=== PATIENT | female | born 1960 | race Two or more races ===

== ENCOUNTER → 2017-09-11 | Outpatient (CLI) | payer OTHER ==
[~2017-09-11] MED LIST: ALBU90OI INH; ARIP10 PO; Armour Thyroid120 MG; Budeprion Sr150 MG PO; CELE100; Crutch1 EACH MISC; DEXT10ER; DEXT15ER PO; DIVIGEL TD; ESTRTP VAG; GABA100 PO; Glucophage Xr750 MG PO; METF850; METO25ER; MINIVELLE1 EAC1 TD; Mobic15 MG PO; Naprosyn500 MG PO; OMEP20ER PO; PSYL5.85P PO; Percocet 5-3251 EACH PO; SENN187 PO; THYR60; TRAM50 PO; Valium5 MG PO; [UNRECOGNIZED DRUG - OTHER]
[2017-09-11 16:35] LABS: BASOPHILS ABSOLUTE AUTO 0.06 K/mm3 (0.00-0.23); BASOPHILS PERCENT AUTO 1 % (0-2); EOSINOPHILS ABSOLUTE AUTO 0.18 K/mm3 (0.00-0.68); EOSINOPHILS PERCENT AUTO 2 % (0-6); Hematocrit 44.5 % (33.0-51.0); Hemoglobin 14.8 g/dL (11.5-16.0); IMMATURE GRAN ABSOLUTE AUTO 0.03 K/mm3 (0.00-0.10); IMMATURE GRAN PERCENT AUTO 0 % (0-1); LYMPHOCYTES ABSOLUTE AUTO 2.53 K/mm3 (0.84-5.20); LYMPHOCYTES PERCENT AUTO 30 % (21-46); MONOCYTES ABSOLUTE AUTO 0.55 K/mm3 (0.16-1.47); MONOCYTES PERCENT AUTO 7 % (4-13); Mean Corpuscular HGB 30.1 pg (26.0-34.0); Mean Corpuscular HGB Conc 33.3 g/dL (31.5-36.5); Mean Corpuscular Volume 91 fL (80-100); Mean Platelet Volume 9.6 fL (9.1-12.4); NEUTROPHILS ABSOLUTE AUTO 5.05 K/mm3 (1.96-9.15); NEUTROPHILS PERCENT AUTO 60 % (41-73); Platelet Count 359 K/mm3 (150-400); RDW Coefficient Variation 11.7 % (11.7-14.2); RDW Standard Deviation 39.2 fL (35.1-46.3); Red Blood Cell Count 4.91 M/mm3 (3.80-5.20)
[2017-09-11 16:51] LABS: Alanine Aminotransfer (ALT/SGP 25 U/L (12-78); Albumin/Globulin Ratio 1.2 (0.8-1.8); Alk Phos 73 U/L (50-136); Anion Gap 6 mmol/L (6-16); Aspartate Aminotrans (AST/SGOT 16 U/L (12-37); Bilirubin, Total 0.6 mg/dL (0.1-1.0); Blood Urea Nitrogen 14 mg/dL (8-24); Bun/Creatinine Ratio 16.6 (12.0-20.0); CO2, Blood 29 mmol/L (21-32); Calcium, Blood 9.2 mg/dL (8.5-10.1); Chloride, Blood 105 mmol/L (98-108); Creatinine, Blood 0.84 mg/dL (0.40-1.00); Globulin, Blood 3.4 g/dL (2.2-4.0); Glomerular Filtration Rate >60 (60-); Glucose, Blood 98 mg/dL (70-99); Potassium, Blood 4.2 mmol/L (3.5-5.5); Sodium, Blood 140 mmol/L (136-145); Total Protein, Blood 7.4 g/dL (6.4-8.2)
== END | disposition home or self-care (01) ==
LOC: LAB 15:38 → LAB SHORT 15:38
PROVIDERS: Hospitalist
DX: R53.83 Other fatigue (principal)
CPT/HCPCS: 80053; 85025

== ENCOUNTER → 2018-05-27 | Outpatient (CLI) | payer OTHER | END | disposition home or self-care (01) | LOC: LAB 15:24 → LAB SHORT 15:24 | DX: R30.0 Dysuria (principal) | CPT/HCPCS: 87086 ==

== ENCOUNTER → 2018-06-18 | Outpatient (CLI) | payer OTHER ==
[2018-06-19 07:57] LABS: Candida species (DNA Probe) Negative (NEGATIVE); G. vaginalis (DNA Probe) Negative (NEGATIVE); T. vaginalis (DNA Probe) Negative (NEGATIVE)
== END | disposition home or self-care (01) ==
LOC: LAB 17:41 → LAB SHORT 17:41
PROVIDERS: Obstetrics & Gynecology
DX: R30.0 Dysuria (principal); N89.8 Other specified noninflammatory disorders of vagina
CPT/HCPCS: 87070; 87077; 87086; 87147; 87186; 87205; 87480; 87510; 87660

== ENCOUNTER → 2018-07-09 | Outpatient (CLI) | payer OTHER ==
[2018-07-10 09:25] LABS: Candida species (DNA Probe) Negative (NEGATIVE); G. vaginalis (DNA Probe) Positive (NEGATIVE); T. vaginalis (DNA Probe) Negative (NEGATIVE)
== END | disposition home or self-care (01) ==
LOC: LAB SHORT 17:49 → LAB 17:49
PROVIDERS: Obstetrics & Gynecology
DX: N89.8 Other specified noninflammatory disorders of vagina (principal); R30.0 Dysuria
CPT/HCPCS: 87070; 87086; 87205; 87480; 87510; 87660

== ENCOUNTER → 2018-08-04 | Outpatient (CLI) | payer OTHER ==
[2018-08-05 10:49] LABS: Candida species (DNA Probe) Negative (NEGATIVE); G. vaginalis (DNA Probe) Positive (NEGATIVE); T. vaginalis (DNA Probe) Negative (NEGATIVE)
== END | disposition home or self-care (01) ==
LOC: LAB SHORT 15:58 → LAB 15:58
PROVIDERS: Obstetrics & Gynecology
DX: N89.8 Other specified noninflammatory disorders of vagina (principal)
CPT/HCPCS: 87480; 87510; 87660

== ENCOUNTER → 2018-12-30 | Outpatient (CLI) | payer OTHER ==
[2018-12-31 11:55] LABS: Candida species (DNA Probe) Negative (NEGATIVE); G. vaginalis (DNA Probe) Positive (NEGATIVE); T. vaginalis (DNA Probe) Negative (NEGATIVE)
== END | disposition home or self-care (01) ==
LOC: LAB 16:32 → LAB SHORT 16:32
PROVIDERS: Obstetrics & Gynecology
DX: R30.0 Dysuria (principal); N89.8 Other specified noninflammatory disorders of vagina
CPT/HCPCS: 87086; 87480; 87510; 87660

== ENCOUNTER → 2019-02-25 | Outpatient (CLI) | payer OTHER | END | disposition home or self-care (01) | LOC: LAB SHORT 18:54 → LAB 18:54 | DX: N89.8 Other specified noninflammatory disorders of vagina (principal); R30.0 Dysuria | CPT/HCPCS: 87070; 87086; 87205 ==

== ENCOUNTER → 2019-05-28 | Outpatient (CLI) | payer OTHER ==
[2019-05-29 11:07] LABS: Candida species (DNA Probe) Negative (NEGATIVE); G. vaginalis (DNA Probe) Negative (NEGATIVE); T. vaginalis (DNA Probe) Negative (NEGATIVE)
== END | disposition home or self-care (01) ==
LOC: LAB 16:07 → LAB SHORT 16:07
PROVIDERS: Obstetrics & Gynecology
DX: N89.8 Other specified noninflammatory disorders of vagina (principal)
CPT/HCPCS: 87480; 87510; 87660

== ENCOUNTER → 2019-07-27 | Outpatient (CLI) | payer OTHER | END | disposition home or self-care (01) | LOC: LAB 14:59 → LAB SHORT 14:59 | DX: N89.8 Other specified noninflammatory disorders of vagina (principal); R30.0 Dysuria | CPT/HCPCS: 87070; 87086; 87205 ==

== ENCOUNTER → 2019-11-24 | Outpatient (CLI) | payer OTHER | LOC: LAB 17:59 → LAB SHORT 17:59 | DX: N89.8 Other specified noninflammatory disorders of vagina (principal); R30.0 Dysuria | CPT/HCPCS: 87070; 87086; 87205 ==

== ENCOUNTER → 2020-03-24 | Outpatient (CLI) | payer OTHER | LOC: LAB SHORT 15:49 → LAB 15:49 | DX: L08.9 Local infection of the skin and subcutaneous tissue, unspecified (principal); Z48.02 Encounter for removal of sutures | CPT/HCPCS: 87070; 87205 ==

== ENCOUNTER → 2020-03-31 | Outpatient (CLI) | payer OTHER | LOC: LAB 17:22 → LAB SHORT 17:22 | DX: E11.9 Type 2 diabetes mellitus without complications (principal) | CPT/HCPCS: 82043 ==

== ENCOUNTER → 2020-06-20 | Outpatient (CLI) | payer OTHER | LOC: LAB 15:54 → LAB SHORT 15:54 | DX: N89.8 Other specified noninflammatory disorders of vagina (principal); Z88.6 Allergy status to analgesic agent; Z88.5 Allergy status to narcotic agent | CPT/HCPCS: 87070; 87205 ==

== ENCOUNTER → 2021-04-19 | Outpatient (CLI) | payer OTHER | END | disposition home or self-care (01) | LOC: LAB SHORT 15:13 | DX: N89.8 Other specified noninflammatory disorders of vagina (principal) | CPT/HCPCS: 87070; 87205 ==

== ENCOUNTER 2021-05-03 13:02 | Day surgery (SDC) | payer OTHER | END 2021-05-03 23:06 | disposition home or self-care (01) | LOC: MRI 13:02 | DX: M19.071 Primary osteoarthritis, right ankle and foot (principal); M21.6X1 Other acquired deformities of right foot | CPT/HCPCS: 73718 ==

== ENCOUNTER 2021-06-23 11:58 | Day surgery (SDC) | payer OTHER ==
[~2021-06-23] VITALS: Ht 162.6 cm; Wt 97.7 kg
== END 2021-06-23 15:34 | disposition home or self-care (01) ==
LOC: ORSCSDS 11:58
PROVIDERS: Podiatrist Foot & Ankle Surgery
PROC: 0QBN0ZZ Excision of Right Metatarsal, Open Approach (ICD-10-PCS; principal; 2021-06-23 13:30)
DX: M19.079 Primary osteoarthritis, unspecified ankle and foot (principal); I10 Essential (primary) hypertension; E11.9 Type 2 diabetes mellitus without complications; Z86.73 Personal history of transient ischemic attack (TIA), and cerebral infarction without residual deficits; E66.01 Morbid (severe) obesity due to excess calories; Z68.37 Body mass index [BMI] 37.0-37.9, adult; Z79.899 Other long term (current) drug therapy
CPT/HCPCS: 82947; A9270; J0171; J0690; J1100; J1885; J2250; J2405; J2704; J3010; J7120

== ENCOUNTER → 2021-10-24 | Outpatient (CLI) | payer OTHER ==
[2021-10-24 20:19] LABS: Alanine Aminotransfer (ALT/SGP 27 U/L (12-78); Albumin, Blood 3.7 g/dL (3.4-5.0); Albumin/Globulin Ratio 1.1 (0.8-1.8); Alk Phos 80 U/L (50-136); Anion Gap 6 mmol/L (6-16); Aspartate Aminotrans (AST/SGOT 17 U/L (12-37); Bilirubin, Total 0.4 mg/dL (0.1-1.0); Blood Urea Nitrogen 21 mg/dL (8-24); Bun/Creatinine Ratio 22.6 (12.0-20.0); CO2, Blood 28 mmol/L (21-32); Calcium, Blood 9.4 mg/dL (8.5-10.1); Chloride, Blood 103 mmol/L (98-108); Cholesterol 236 mg/dL (50-200); Creatinine, Blood 0.93 mg/dL (0.40-1.00); Globulin, Blood 3.3 g/dL (2.2-4.0); Glomerular Filtration Rate 69 (60-); Glucose, Blood 112 mg/dL (70-99); HDL Cholesterol 78 mg/dL (>39); LDL/HDL RATIO 1.8; Low Density Lipoprotein Chol 143 mg/dL (0-110); Potassium, Blood 4.1 mmol/L (3.5-5.5); Sodium, Blood 137 mmol/L (136-145); Triglycerides 77 mg/dL (30-160); Very Low Density Lipoprot Chol 15 mg/dL (6-32)
== END | disposition home or self-care (01) ==
LOC: LAB 16:00 → LAB SHORT 16:00
PROVIDERS: Hospitalist
DX: E11.9 Type 2 diabetes mellitus without complications (principal); I10 Essential (primary) hypertension
CPT/HCPCS: 80053; 80061; 82043; 83036

== ENCOUNTER 2022-01-17 12:12 | Day surgery (SDC) | payer OTHER ==
[~2022-01-17] VITALS: Ht 162.6 cm; Wt 97.5 kg
[~2022-01-17 12:12] MED LIST changes: +BUME2 PO; +KLOR-CON 1010 ME2 PO; +MELO7.5
--- NOTE | 2022-01-17 13:33 | NUR ---
01/17/22 1773 Marie Barnett S PT. VERBALIZED HER HANDS WERE SENSITIVE WHEN GETTING READY TO START IV. ATTEMPTED TO PLACE 20G IV IN RIGHT WRIST/RIGHT FOREARM BUT PT. VERBALIZED IT WAS REALLY HURTING WHEN TRYING TO GET IV SO PULLED OUT. PT. WAS REALLY TENSE & PALM OF HER HAND WAS SWEATY. PLACED ANOTHER IV IN RIGHT FOREARM ( PT. GIVEN THE CHOICE OF LEFT HAND OR RIGHT WRIST & PT. CHOSE RIGHT WRIST. PT. AGAIN C/O HURTING WHILE PUTTING IV IN, IV RUNNING WELL, NO SWELLING OR REDNESS AT EITHER SITE. PT. GIVEN A WARM PACK TO PLACE ON IV SITES.
--- NOTE | 2022-01-17 15:53 | NUR ---
01/17/[address] OFFICE CALLED TO SCHEDULE AN APPOINTMENT REGARDING SYMPTOMOLOGY OF GALLSTONES PER DR PARKINSON. DR ESCOBAR OFFICE WILL FOLLOW UP WITH PT TO SCHEDULE HER A WORK IN [place]. PT NOTIFIED TO CALL DR ESCOBAR OFFICE WITHIN A WEEK IF SHE HAS NOT HEARD BACK FROM THEM; CONTACT INFO PROVIDED IN DC INSTRUCTIONS TO PATIENT.
== END 2022-01-17 15:33 | disposition home or self-care (01) ==
LOC: ORSCSDS 12:12
PROVIDERS: Internal Medicine Gastroenterology
PROC: 0DBK8ZX Excision of Ascending Colon, Via Natural or Artificial Opening Endoscopic, Diagnostic (ICD-10-PCS; principal; 2022-01-17 13:45)
PROC: 0DBE8ZX Excision of Large Intestine, Via Natural or Artificial Opening Endoscopic, Diagnostic (ICD-10-PCS; principal; 2022-01-17 13:45)
PROC: 0DB58ZX Excision of Esophagus, Via Natural or Artificial Opening Endoscopic, Diagnostic (ICD-10-PCS; principal; 2022-01-17 13:45)
PROC: 0DB78ZX Excision of Stomach, Pylorus, Via Natural or Artificial Opening Endoscopic, Diagnostic (ICD-10-PCS; principal; 2022-01-17 13:45)
DX: R10.13 Epigastric pain (principal); K22.70 Barrett's esophagus without dysplasia; R19.4 Change in bowel habit; Z86.010 Personal history of colon polyps; D12.2 Benign neoplasm of ascending colon; K29.70 Gastritis, unspecified, without bleeding; K57.30 Diverticulosis of large intestine without perforation or abscess without bleeding; K44.9 Diaphragmatic hernia without obstruction or gangrene; K64.8 Other hemorrhoids; G47.33 Obstructive sleep apnea (adult) (pediatric); E03.9 Hypothyroidism, unspecified; E11.9 Type 2 diabetes mellitus without complications; Z86.73 Personal history of transient ischemic attack (TIA), and cerebral infarction without residual deficits; E66.9 Obesity, unspecified; Z68.36 Body mass index [BMI] 36.0-36.9, adult; Z79.899 Other long term (current) drug therapy
CPT/HCPCS: 82947; 88305; 88342; J2250; J2704; J7120

== ENCOUNTER → 2022-02-20 | Outpatient (CLI) | payer OTHER | END | disposition home or self-care (01) | LOC: LAB 18:47 → LAB SHORT 18:47 | DX: N89.8 Other specified noninflammatory disorders of vagina (principal) | CPT/HCPCS: 87070; 87205 ==

== ENCOUNTER 2022-07-20 10:33 | Day surgery (SDC) | payer OTHER ==
[~2022-07-20] VITALS: Ht 162.6 cm; Wt 100.4 kg
[2022-07-20] MEDS ORDERED: OMEP20ER PO (11:46)
--- NOTE | 2022-07-20 13:14 | NUR ---
07/20/22 1314 JOVAN HARPER 2 SYRINGES OF: 1ML OF KENALOG 40MG MIXED WITH 1ML OF ROPIVACAINE 0.5% TO USE FOR BILATERAL ANKLE INJECTIONS. 10MLS OF LIDOCAINE 2% INJECTED INTO LFOOT AT START OF CASE BEFORE STERILE PREP BY DR. CAMERON. 0.1MG OF EPI ADDED TO 20MLS OF ROPIVACAINE 0.5% TO CREATE A LOCAL SOLUTION OF ROPIVACAINE 0.5% WITH EPI 1:200,000. LOCAL POURED ONTO STERILE FIELD FOR USE DURING CASE.
--- NOTE | 2022-07-20 15:34 | NUR ---
07/20/22 1534 Filemon Murrell PT REPORTED 3/10 PAIN IN STEP DOWN BUT DESCRIBED PAIN TOLERABLE. SHE EXPRESSED READINESS TO RETURN HOME.
== END 2022-07-20 14:35 | disposition home or self-care (01) ==
LOC: ORSCSDS 10:33
PROVIDERS: Podiatrist Foot & Ankle Surgery
PROC: 0S9 Lower Joints, Drainage (ICD-10-PCS; principal; 2022-07-20 12:00)
PROC: 0QBP0ZZ Excision of Left Metatarsal, Open Approach (ICD-10-PCS; principal; 2022-07-20 12:00)
DX: M21.622 Bunionette of left foot (principal); M77.52 Other enthesopathy of left foot and ankle; M25.572 Pain in left ankle and joints of left foot; I10 Essential (primary) hypertension; E78.5 Hyperlipidemia, unspecified; G47.33 Obstructive sleep apnea (adult) (pediatric); K21.9 Gastro-esophageal reflux disease without esophagitis; E03.9 Hypothyroidism, unspecified; E66.9 Obesity, unspecified; Z68.38 Body mass index [BMI] 38.0-38.9, adult; Z79.899 Other long term (current) drug therapy
CPT/HCPCS: 82947; 93005; 93010; J0690; J2001; J2250; J2704; J2795; J3010; J3301; J7120

== ENCOUNTER → 2024-09-04 | Outpatient (CLI) | payer OTHER ==
[~2024-09-04] MED LIST changes: +ABILIFY MYCITE PO; +ALPR.25 PO; +ARMOUR THYROID120 M1 PO; +ASPI81CH PO; +BUMETANIDE2 M1 PO; +CELEBREX200 MG PO; +CEPH500 PO; +DEXT5ER PO; +Doxepin HC10 MG/1 ML PO; +HYDROCODONE-AC1 EA19 PO; +LANSOPRAZOLE30 MG PO; +MOBIC15 MG PO; +MULTIPLE VITAM1 EACH PO; +NIVA THYROID60 MG PO; +OMEPRAZOLE20 MG PO; +OXYCODONE-ACET1 EAC3 PO; +POTA10T PO; +RABEPRAZOLE SOD20 MG PO; +TOPROL XL25 MG PO; +VITAMIN D31250 MC2 PO; +[UNRECOGNIZED DRUG - OTHER] PO
== END ==
LOC: LAB 17:10 → LAB SHORT 17:10
DX: J02.9 Acute pharyngitis, unspecified (principal)
CPT/HCPCS: 87081